=== PATIENT | female | born 1995 | race Asian ===

== ENCOUNTER 2016-06-07 09:30 | Emergency (ER) | payer BC, OTHER ==
[2016-06-07 10:10] VITALS: BP 108/70
--- NOTE | 2016-06-07 10:25 | UC ---
Respiratory Complaint HPI - HPI Summary HPI Summary: cough for 10 days, occasional ear pressure, no fever or other symptoms - History of Current Complaint Chief Complaint: UCRespiratory Stated Complaint: COLD-LIKE SYMPTOMS Time Seen by Provider: 06/07/16 10:16 Hx Obtained From: Patient Hx Last Menstrual Period: 05/27/16 ?: No Onset/Duration: Sudden Onset, Lasting Days Timing: Constant Severity Initially: Mild Severity Currently: Moderate Pain Intensity: 4 Pain Scale Used: 0-10 Numeric Character: Cough: Nonproductive Aggravating Factors: Deep Breaths, Recumbent Position Alleviating Factors: Nothing - Risk Factors Pulmonary Embolism Risk Factors: Negative Cardiac Risk Factors: Negative Pseudomonas Risk Factors: Negative - Allergies/Home Medications Allergies/Adverse Reactions: Allergies Allergy/AdvReac Type Severity Reaction Status Date / Time No Known Allergies Allergy Verified 05/30/15 21:37 Home Medications: Home Medications Multiple Vitamins W/ Minerals [Multivitamin Women] 1 tab PO 06/07/16 [History] PMH/Surg Hx/FS Hx/Imm Hx Previously Healthy: Yes - Surgical History Surgical History: None - Family History Known Family History: Negative: Hypertension, Renal Disease, Respiratory Disease - Social History Alcohol Use: None Substance Use Type: None Smoking Status (MU): Never Smoked Tobacco Review of Systems Constitutional: Negative Skin: Negative Eyes: Negative ENT: Negative, Ear Ache Respiratory: Cough Cardiovascular: Negative Gastrointestinal: Negative Genitourinary: Negative Motor: Negative Neurovascular: Negative Musculoskeletal: Negative Neurological: Negative Psychological: Negative All Other Systems Reviewed And Are Negative: Yes Physical Exam Triage Information Reviewed: Yes Appearance: Well-Appearing, Well-Nourished, Pain Distress Vital Signs: Initial Vital Signs Temp 99.2 F 06/07/16 10:07 Pulse 83 06/07/16 10:07 Resp 18 06/07/16 10:07 BP 108/70 06/07/16 10:07 Pulse Ox 98 06/07/16 10:07 Vital Signs Reviewed: Yes Eye Exam: Normal Eyes: Positive: Conjunctiva Clear ENT: Positive: Pharyngeal erythema, TM red Dental Exam: Normal Neck exam: Normal Neck: Positive: Supple, Nontender, No Lymphadenopathy Respiratory Exam: Normal Respiratory: Positive: Chest non-tender, Normal breath sounds, Wheezing, Inspiration Cardiovascular Exam: Normal Cardiovascular: Positive: RRR, No Murmur, Pulses Normal Abdominal Exam: Normal Abdomen Description: Positive: Nontender, No Organomegaly, Soft Bowel Sounds: Positive: Present Musculoskeletal Exam: Normal Musculoskeletal: Positive: Strength Intact, ROM Intact, No Edema Neurological Exam: Normal Neurological: Positive: Alert, Muscle Tone Normal Psychological Exam: Normal Skin Exam: Normal UC Diagnostic Evaluation - Laboratory O2 Sat by Pulse Oximetry: 98 Respiratory Course/Dx - Course Course Of Treatment: hx obtained, medication reviewed, exam performed, mild ear canal inflammation and pharynegeal inflammation. prednisone prescribed, given spacer to use with ventolin, educated on use. - Differential Dx/Diagnosis Differential Diagnosis/HQI/PQRI: Aspiration, Asthma, Influenza, Laryngitis, Sinusitis, Tuberculosis Provider Diagnoses: bronchospasm. pharyngitis Discharge - Discharge Plan Condition: Stable Disposition: HOME Prescriptions: Albuterol HFA INHALER* [Ventolin HFA Inhaler*] 1 - 2 puff INH Q4H PRN #1 mdi PRN Reason: Cough predniSONE TAB* [Deltasone TAB*] 40 mg PO DAILY #10 tab Patient Education Materials: Bronchospasm (ED)
== END 2016-06-07 11:09 | disposition home or self-care (01) ==
LOC: UCEAST 09:30
DX: J98.01 Acute bronchospasm (principal); J02.9 Acute pharyngitis, unspecified
CPT/HCPCS: 99212; G0463

== ENCOUNTER → 2018-01-16 22:26 | Emergency (ER) | payer BC ==
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
[2018-01-17 02:27] VITALS: BP 115/60
== END | disposition home or self-care (01) ==
LOC: ED 22:26
DX: O26.892 Other specified pregnancy related conditions, second trimester (principal); R10.30 Lower abdominal pain, unspecified; Z3A.22 22 weeks gestation of pregnancy
CPT/HCPCS: 99282